=== PATIENT | female | born 1960 | race Caucasian/White ===

== ENCOUNTER 2022-04-12 16:56 | Emergency (ER) | payer BC ==
[2022-04-12] MEDS ORDERED: Ibuprofen 400 MG Tab PO ONE (17:31)
== END 2022-04-12 18:47 | disposition home or self-care (01) ==
LOC: JP.ED 16:56
DX: S82.831A Other fracture of upper and lower end of right fibula, initial encounter for closed fracture (principal); X50.1XXA Overexertion from prolonged static or awkward postures, initial encounter
CPT/HCPCS: 73610; 99283; A9270